=== PATIENT | female | born 1975 | race Caucasian/White ===

== ENCOUNTER 2017-10-29 20:04 | Emergency (ER) | payer OTHER ==
[2017-10-29] MEDS ORDERED: diphenhydrAMINE 25 MG CAPSULE PO STA (22:09)
[2017-10-29] MEDS ORDERED: predniSONE 20 MG TABLET PO STA (22:09)
--- NOTE | 2017-10-29 22:12 | ED Physician Documentation ---
PD HPI SKIN - Stated complaint Stated Complaint: RASH - Chief complaint Chief Complaint: Wound - Additional information Additional information: 41-year-old female presents the emergency department with a rash on her trunk, extremities and buttocks for the past several days. The patient reports significant itching and discomfort. The patient denies any viral syndrome associated with this. The patient denies tongue swelling, posterior pharynx swelling or shortness of breath. No relieving factors. No clear triggering factors. 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 : None HEENT: None Psych: None Musculoskeletal: None Derm: None - Past Surgical History Past Surgical History: Yes General: Cholecystectomy /GILL BOX OPERATOR: section HEENT: Tonsil/Adenoidectomy - Present Medications Home Medications: Ambulatory Orders Medication Instructions Recorded Confirmed Amoxicillin 500 mg PO TID 10 Days capsule 06/06/15 Polymyxin B/Trimeth Ophth Drop 2 drops OPTH Q4H 7 Days drops 06/06/15 [Polytrim Ophth Drops] predniSONE [Prednisone] 60 mg PO DAILY #12 tablet 10/29/17 - Allergies Allergies/Adverse Reactions: Allergies Allergy/AdvReac Type Severity Reaction Status Date / Time Sulfa (Sulfonamide Allergy Rash Verified 10/29/17 20:11 Antibiotics) - Social History Does the pt smoke?: No Smoking Status: Never smoker Does the pt drink ETOH?: Yes Does the pt have substance abuse?: No - Immunizations Immunizations are current?: Yes Immunizations: TDAP >10years/unknown - POLST Patient has POLST: No PD ED PE NORMAL - General General: Alert and oriented X 3, No acute distress - HEENT HEENT: Atraumatic, PERRL, EOMI - Respiratory Respiratory: No respiratory distress - Neuro Neuro: Alert and oriented X 3, Normal speech - Psych Psych: Normal affect PD ED PE EXPANDED - Derm Derm: Rash, Papules, Other (The patient has multiple papules with surrounding erythematous bases and Some have nonspecific waxy material associated with them. The lesions are scattered throughout the torso and extremities and buttocks. The patient has no lesions in the webs of her fingers, webs of the toes palms or soles of the feet.). No: Normal color, Pale, Coalescing, Vesicles , Abscess Results - Vitals Vitals: Vital Signs - 24 hr 10/29/17 20:06 Temperature 36.0 C L Heart Rate 86 Respiratory 16 Rate Blood Pressure 143/93 H O2 Saturation 99 Oxygen O2 Source Room air PD MEDICAL DECISION MAKING - ED course ED course: The patient has a nonspecific rash, the patient was worried about chickenpox however this does not appear to represent the classic chickenpox rash. Also, the patient had chickenpox apparently twice in the past and has been updated vaccination. The patient appears appropriate for discharge and ongoing outpatient management. I discussed warning signs and recommended returning to the emergency department for any worsening or any concerns. - Sepsis Event Vital Signs: Vital Signs - 24 hr 10/29/17 20:06 Temperature 36.0 C L Heart Rate 86 Respiratory 16 Rate Blood Pressure 143/93 H O2 Saturation 99 Oxygen O2 Source Room air Departure - Departure Disposition: 01 Home, Self Care Clinical Impression: Rash and nonspecific skin eruption Condition: Good Instructions: Rash Skin Self Care Follow-Up: Epifanio Craft DO [Primary Care Provider] - Within 1 week Prescriptions: predniSONE [Prednisone] 60 mg PO DAILY #12 tablet Comments: Please return for worsening symptoms or any concerns
[2017-10-29 22:25] VITALS: BP 129/95
== END 2017-10-29 22:27 | disposition home or self-care (01) ==
LOC: ED 20:04
DX: R21 Rash and other nonspecific skin eruption (principal)
CPT/HCPCS: 99283; A9270; J7512

== ENCOUNTER 2018-06-29 13:43 | Emergency (ER) | payer OTHER ==
[2018-06-29 14:03] VITALS: BP 143/88
--- NOTE | 2018-06-29 14:09 | ED Physician Documentation ---
PD HPI UPPER EXT INJURY - Stated complaint Stated Complaint: RT HAND PX - Chief complaint Chief Complaint: Ext Problem - History obtained from History obtained from: Patient - History of Present Illness Location: Right, Hand Type of injury: Crush (in a door) Where injury occurred: Work Timing - onset: Today (1230pm) Review of Systems Constitutional: reports: Reviewed and negative Throat: reports: Reviewed and negative Cardiac: reports: Reviewed and negative PD PAST MEDICAL HISTORY - Past Medical History Cardiovascular: None Respiratory: None Neuro: None Endocrine/Autoimmune: None GI: Cholelithiasis 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 : None HEENT: None Psych: None Musculoskeletal: None Derm: None - Past Surgical History Past Surgical History: Yes General: Cholecystectomy /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 HEENT: Tonsil/Adenoidectomy - Present Medications Home Medications: Ambulatory Orders Medication Instructions Recorded Confirmed Methylphenidate HCl [Concerta] 27 mg PO 06/29/18 - Allergies Allergies/Adverse Reactions: Allergies Allergy/AdvReac Type Severity Reaction Status Date / Time Sulfa (Sulfonamide Allergy Rash Verified 06/29/18 14:03 Antibiotics) - Social History Does the pt smoke?: No Smoking Status: Never smoker Does the pt drink ETOH?: Yes Does the pt have substance abuse?: No - Immunizations Immunizations are current?: Yes Immunizations: TDAP >10years/unknown - POLST Patient has POLST: No PD ED PE NORMAL - Vitals Vital signs reviewed: Yes - General General: Alert and oriented X 3, No acute distress - Extremities Extremities: Other (No obvious deformity or bruising or swelling to the right hand. Is quite tender over the DIP and the PIP of pinky finger and unable to flex that one. She is neurovascularly intact at all the tips of the fingers. She is also mildly tender over the PIP and mid phalanx of the second finger.) - Neuro Neuro: Alert and oriented X 3, Normal speech Results - Vitals Vitals: Vital Signs - 24 hr 06/29/18 14:01 Temperature 36.8 C Heart Rate 89 Respiratory 15 Rate Blood Pressure 143/88 H O2 Saturation 99 Oxygen O2 Source Room air - Rads (name of study) R hand 3v Radiology: EMP read contemporaneously (NAD) Departure - Departure Disposition: 01 Home, Self Care Clinical Impression: Hand crush injury Condition: Good Record reviewed to determine appropriate education?: Yes Instructions: ED Crush Injury Finger No Fx Comments: Ibuprofen as needed for pain, elevate and ice as needed. Follow-up with your doctor early next week if not better. Return for new or worsening symptoms. Discharge Date/Time: 06/29/18 14:36
--- NOTE | 2018-06-29 14:48 | XRAY Report ---
Reason: hand inj Procedure Date: 06/29/2018 Accession Number: [id number] / [id number] Procedure: XR - Hand 3 View RT CPT Code: FULL RESULT: EXAM: RIGHT HAND RADIOGRAPHY EXAM DATE: 06/29/2018 02:24 PM. CLINICAL HISTORY: Hand inj. COMPARISON: None available. TECHNIQUE: 3 views. FINDINGS: Bones: No acute fracture or dislocation visualized. Joints: Intact and unremarkable. Soft Tissues: Normal. No soft tissue swelling. IMPRESSION: Normal hand radiography. [facility]
== END 2018-06-29 14:36 | disposition home or self-care (01) ==
LOC: ED 13:43
DX: S69.91XA Unspecified injury of right wrist, hand and finger(s), initial encounter (principal); W23.1XXA Caught, crushed, jammed, or pinched between stationary objects, initial encounter; Y99.0 Civilian activity done for income or pay
CPT/HCPCS: 1040M; 73130; 99282